=== PATIENT | male | born 1980 | race Caucasian/White ===

== ENCOUNTER → 2022-03-01 | Emergency (ER) | payer BC ==
[~2022-03-01] MED LIST: GI Cocktail Oral Solution 30 ML ONE; Pantoprazole 40 MG Vial ONE
[2022-03-23 13:25] LABS: ANION GAP 10.5 meq/L (7-15); CHLORIDE,CL 102 mmol/L (98-107); SODIUM,NA 141 mmol/L (136-145)
[2022-03-23 13:26] LABS: ESTIMATED GFR 83 mL/min (>=60)
[2022-03-23 13:29] LABS: CORONAVIRUS COVID-19 NAA NEGATIVE (NEGATIVE); RESPIRATORY SYNCYTIAL VIR NAA NEGATIVE (NEGATIVE)
[2022-03-23 13:35] LABS: PTT,PARTIAL THROMBOPLSTIN TIME 25.2 SEC (23.6-29.8)
== END ==
LOC: LL.ED 08:30
DX: R07.89 Other chest pain (principal); I10 Essential (primary) hypertension
CPT/HCPCS: 0241U; 36415; 71045; 80053; 84484; 85025; 85379; 85610; 85730; 93005; 99285; A9270-GY; C9113